=== PATIENT | male | born 1980 | race Caucasian/White ===

== ENCOUNTER 2018-11-07 14:00 | Observation (INO) | payer MEDICAID ==
[~2018-11-07] VITALS: Ht 175.3 cm; Wt 84.5 kg
[2018-11-07 17:20] LABS: BASOPHILS 0.3 % (0-2); EOSINOPHILS 0.7 % (0-7); HEMATOCRIT 41.1 % (42.0-54.0); HEMOGLOBIN 14.2 g/dL (13.5-17.5); LYMPHOCYTES 22.9 % (15-50); MCH 29.8 pg (26.0-34.0); MCHC 34.5 g/dL (31.0-37.0); MCV 86.2 fL (80.0-100.0); MEAN PLATELET VOLUME 10.1 fL (7.4-10.4); MONOCYTES 5.2 % (2-11); NEUTROPHILS 70.9 % (40-80); PLATELET COUNT 206 10x3/uL (130-400); RBC 4.77 10x6/uL (4.20-6.10); WBC 5.8 10x3/uL (4.8-10.8)
[2018-11-07 17:22] LABS: INR 1.09 (0.85-1.17); PROTIME 13.6 SECONDS (11.6-15.0)
--- NOTE | 2018-11-07 17:24 | NUR ---
ANCEF COMLETED AT 1700
[2018-11-07 17:30] LABS: ALBUMIN 4.3 g/dL (3.4-5.0); ALKALINE PHOSPHATASE 66 U/L (46-116); ALT (SGPT) 31 U/L (10-68); BILIRUBIN - TOTAL 0.32 mg/dL (0.2-1.3); CALC OSMOLALITY 286 mosm/kg (275-300); CALCIUM 8.6 mg/dL (8.5-10.1); CARBON DIOXIDE 29.9 mmol/L (21.0-32.0); CHLORIDE - SERUM 105 mmol/L (98-107); CREATININE - SERUM 1.1 mg/dL (0.6-1.3); GLUCOSE 98 mg/dL (74-106); POTASSIUM - SERUM 4.3 mmol/L (3.5-5.1); PROTEIN - SERUM 8.2 g/dL (6.4-8.2); SODIUM 143 mmol/L (136-145); UREA NITROGEN 17 mg/dL (7-18); eGFR NON AFRICAN AMERICAN 80 mL/min (90-120)
[2018-11-07 19:15] LABS: APPEARANCE CLEAR (CLEAR); BILIRUBIN NEGATIVE (NEGATIVE); COLOR YELLOW (YELLOW); GLUCOSE NEGATIVE (NEGATIVE); KETONE NEGATIVE (NEGATIVE); NITRITE NEGATIVE (NEGATIVE); PROTEIN NEGATIVE (NEGATIVE); SPECIFIC GRAVITY 1.015 (1.005-1.020); UROBILINOGEN NORMAL (NORMAL)
[2018-11-08] MEDS ORDERED: NORCO 7.5/325 T1 TA1 PO (02:36)
[2018-11-08] MEDS ORDERED: DURICEF500 MG PO (02:36)
[2018-11-08 03:41] VITALS: BP 136/95; Ht 175.3 cm; Wt 84.5 kg
--- NOTE | 2018-11-08 03:46 | NUR ---
RECEIVED PT FROM RECOVERY @ 0320 BY HOSPITAL STAFF VIA STRETCHER. PT VITAL SIGNS: BP-136/95, PULSE-60, R-18, AND O2 SAT-97%, TEMP-97.4. BED IN THE LOWEST POSITION WITH CALL LIGHT IN REACH. WILL CONTINUE TO MONITOR PT AND FOLLOW PLAN OF CARE.
[2018-11-08 05:20] VITALS: BP 130/80
--- NOTE | 2018-11-08 05:26 | NUR ---
PT D/C TO HOME. PT WAS STABLE. VSS: BP-130/80, TEMP-97.6, SPO2-97% AND R-18.P-68 IV WAS REMOVED FROM LEFT AC AND GAUZE WAS APPLIED TO SITE. PT STATED PAIN LEVEL AT 2 ON A NUMERICAL SCALE. PT WAS TRANSPORTED VIA WHEELCHAIR WITH D/C INSTRUCTIONS.
--- NOTE | 2018-11-08 05:33 | NUR ---
PT ALSO VOIDED 300CC'S OF URINE POST-OP
--- NOTE | 2018-11-08 08:15 | OP ---
PATIENT NAME: BARRETT OMNTILLA MEDICAL RECORD: [id number] :84 LOCATION:D.MS [id number] ADMISSION DATE:11/07/18 SURGEON: KIAH RIVAS DO DATE OF OPERATION: 11/08/2018 PROCEDURE: Right ring finger extensor tendon repair in zone 6. PREOPERATIVE DIAGNOSIS: Right ring finger zone 6 tendon laceration. POSTOPERATIVE DIAGNOSIS: Right ring finger zone 6 tendon laceration. INDICATIONS: Mr. Montilla is a 38-year-old right hand dominant male who was using a facing grinder and the wheel slipped off and caught him on the back of the dorsum of the right hand. It went through the skin and immediately he noticed that his right ring finger dropped and he could not extend it. He came to the ER and x-rays were taken. No fractures or abnormalities were seen on the x-ray, but he could not extend his ring finger. I was called to see him and examined him and apparently he did have an extensor tendon laceration of the ring finger. The other fingers including the small finger and middle finger, index finger and thumb all extended. I informed the patient, he would need this repaired and he had not eaten since breakfast this morning and we try to get it done. He was informed of the risks and benefits including infection, bleeding, damage to nerve and vessels. Aware the postop protocol, remaining in the splint and he was aware of all the risks and benefits and signed consent. SURGEON: Kiah Rivas DO DESCRIPTION OF PROCEDURE: The patient was taken to the operative suite, laid in the supine position, given 2 grams Ancef. The right upper extremity was prepped and draped in sterile fashion. The timeout was performed, everyone was in agreement as to correct side, site and the patient and the right upper extremity was then exsanguinated with an Esmarch. The tourniquet was inflated to 250 mmHg and was up for 21 minutes throughout the procedure. The wound was then irrigated and explored and the distal end of the tendons were found. It was quite broad and then the proximal end of the tendon was found. There was a smaller tendon and a larger tendon. It was 100% lacerated. They were repaired equally with a modified Cordero suture and then a running stitch circumferentially around it with 4-0 Ethibond around the repair site. This was a good repair. The tendon had good excursion and the ring finger did not droop. Following that repair, the wrist was brought in extension and in neutral as well and in flexion of the wrist. There was no drooping of the ring finger. The site was then thoroughly irrigated and closed with 5-0 Monocryl in an inverted interrupted fashion. Steri-Strips were placed on the wound. A 0.5% Marcaine with epinephrine was injected around the site. The tourniquet was let down at 21 minutes and then Adaptic, 4 x 4, Webril was placed on the long, ring, and small finger as well as around the hand, wrist, and a 3 x 12 splint was placed just past the PIP joints of the small, ring and long fingers and then this was overwrapped with an Les wrap with slight wrist extension. The fingers were kept in extension with no flexion at the MCP joints. Once the splint had hardened, the patient was awakened and taken to recovery in stable condition. Blood loss was minimal. Complications none. TRANSINT:[id number] Voice Confirmation ID: [id number] DOCUMENT ID: [id number] OPERATIVE REPORT [id number] BARRETT MONTILLA MICHAEL D, DO at 0815 CC: [id number] DICTATION DATE: 11/08/18 024 YARDAGE CONTROL CLERK: 11/08/18 0715 DIS IN 11/08/18 [facility] [address] [place] [address]
--- NOTE | 2018-11-08 09:33 | MORECARE ---
CASE MANAGEMENT DISCHARGE SUMMARY PATIENT: BARRETT LONG UNIT: [id number] ADM DATE: 11/07/18 AGE: 38 : [birth year] SEX: M ROOM/BED: [id number] AUTHOR: OSCAR MORTENSEN PHYSICIAN: REFERRING PHYSICIAN: KIAH RIVAS DO DATE OF SERVICE: 11/08/18 Discharge Plan Patient Name: BARRETT LONG [facility] [facility] 1980 Planned Disposition: Anticipated Discharge Date: Discharge Date: 11/08/2018 Expected LOS: 0 Initial Reviewer: [email or web address] Initial Review Date: 11/08/2018 Generated: 11/08/18 10:33 am Patient Name: BARRETT LONG Page [id number] at 0933 All edits/amendments must be made on the electronic document DICTATION DATE: 11/08/18932 BRICKMASON CONTRACTOR: HUI 11/08/1833 RPT#: [id number] DC DATE:11/08/18 STATUS: DIS IN [facility] [address] [place] [address] END OF REPORT
== END 2018-11-08 05:38 | disposition home or self-care (01) ==
LOC: D.ER 14:00 → D.EDHOLD 17:05 → OBSVTIME 17:07 → D.MS 11-08 00:47
PROVIDERS: Family Medicine; ADMIT Orthopaedic Surgery
DX: S66.324A Laceration of extensor muscle, fascia and tendon of right ring finger at wrist and hand level, initial encounter (principal); W31.89XA Contact with other specified machinery, initial encounter; I10 Essential (primary) hypertension

== ENCOUNTER 2018-12-23 16:49 | Observation (INO) | payer MEDICAID ==
[~2018-12-23] VITALS: Ht 175.3 cm; Wt 84.1 kg
[~2018-12-23 16:49] MED LIST: DURICEF500 MG PO; NORCO 7.5/325 T1 TA1 PO
[2018-12-23 17:53] VITALS: BP 135/82
--- NOTE | 2018-12-23 17:57 | NUR ---
PATIENT BP WAS 135/[address] ADVISED KESHAWNP RACHAEL THAT PATIENT BP WAS WNL. HELD IV APRESOLINE PER EDP
[2018-12-23 18:01] LABS: BASOPHILS 0.6 % (0-2); EOSINOPHILS 4.8 % (0-7); HEMOGLOBIN 13.8 g/dL (13.5-17.5); IMMATURE GRANULOCYTES 0.3 % (0-5); LYMPHOCYTES 36.1 % (15-50); MCH 30.1 pg (26.0-34.0); MCHC 34.5 g/dL (31.0-37.0); MCV 87.1 fL (80.0-100.0); MEAN PLATELET VOLUME 10.1 fL (7.4-10.4); MONOCYTES 10.3 % (2-11); NEUTROPHILS 47.9 % (40-80); PLATELET COUNT 174 10x3/uL (130-400); RBC 4.59 10x6/uL (4.20-6.10); WBC 3.3 10x3/uL (4.8-10.8)
[2018-12-23 18:23] LABS: ALBUMIN 3.6 g/dL (3.4-5.0); ALKALINE PHOSPHATASE 83 U/L (46-116); ALT (SGPT) 167 U/L (10-68); BILIRUBIN - TOTAL 0.28 mg/dL (0.2-1.3); CALC OSMOLALITY 275 mosm/kg (275-300); CALCIUM 8.3 mg/dL (8.5-10.1); CARBON DIOXIDE 27.8 mmol/L (21.0-32.0); CHLORIDE - SERUM 102 mmol/L (98-107); CREATININE - SERUM 0.8 mg/dL (0.6-1.3); GLUCOSE 109 mg/dL (74-106); POTASSIUM - SERUM 3.8 mmol/L (3.5-5.1); PROTEIN - SERUM 7.2 g/dL (6.4-8.2); SODIUM 138 mmol/L (136-145); UREA NITROGEN 9 mg/dL (7-18); eGFR NON AFRICAN AMERICAN > 90 mL/min (90-120)
[2018-12-23 19:10] VITALS: BP 120/87
--- NOTE | 2018-12-23 19:34 | NUR ---
PRACTIONER IN TO SEE PATIENT AND EXPLAIN TO HIM HE NEEDS TO STAY FOR OBSERVATION. PT VERBALIZES UNDERSTANDING.
--- NOTE | 2018-12-23 20:44 | NUR ---
PT STABLE. AWAITING ROOM ON FLOOR TO BE CLEAN. PT UPDATED ABOUT DELAY AND STATES "IT'S OK- I'M FINE"- NO REQUESTS.
[2018-12-23 23:41] VITALS: BP 132/75; Ht 175.3 cm; Wt 84.1 kg
[2018-12-24] VITALS: BP 124/66
[2018-12-24 04:00] VITALS: BP 115/66
--- NOTE | 2018-12-24 08:03 | NUR ---
PT RESTING IN BED. NO ACUTE DISTRESS NOTED. SCD'S PLACED AT THIS TIME. BRUSING NOTED TO LEFT NECK. SALINE LOC TO LEFT AC INTACT, EASILY FLUSHES WITH BLOOD RETURN. REPORTS PAIN 8/10 AT THIS TIME. PAIN MEDICATION GIVEN PER MD ORDERS. DENIES FURTHER NEEDS AT THIS TIME. CL WITHIN REACH. ENCOURAGED TO CALL WITH NEEDS. CONTINUE POC
[2018-12-24 08:44] VITALS: BP 130/77
[2018-12-24 09:08] LABS: ALBUMIN 3.8 g/dL (3.4-5.0); ALKALINE PHOSPHATASE 63 U/L (46-116); ALT (SGPT) 171 U/L (10-68); BILIRUBIN - TOTAL 0.34 mg/dL (0.2-1.3); CALC OSMOLALITY 279 mosm/kg (275-300); CALCIUM 8.8 mg/dL (8.5-10.1); CARBON DIOXIDE 27.9 mmol/L (21.0-32.0); CHLORIDE - SERUM 103 mmol/L (98-107); CREATININE - SERUM 0.9 mg/dL (0.6-1.3); GLUCOSE 111 mg/dL (74-106); POTASSIUM - SERUM 4.1 mmol/L (3.5-5.1); PROTEIN - SERUM 7.6 g/dL (6.4-8.2); SODIUM 140 mmol/L (136-145); UREA NITROGEN 12 mg/dL (7-18); eGFR NON AFRICAN AMERICAN > 90 mL/min (90-120)
--- NOTE | 2018-12-24 10:50 | NUR ---
UA COLLECTED AND TAKEN TO LAB PER MD ORDERS.
[2018-12-24 11:24] LABS: APPEARANCE CLEAR (CLEAR); BILIRUBIN NEGATIVE (NEGATIVE); COLOR YELLOW (YELLOW); GLUCOSE NEGATIVE (NEGATIVE); KETONE NEGATIVE (NEGATIVE); NITRITE NEGATIVE (NEGATIVE); PROTEIN NEGATIVE (NEGATIVE); SPECIFIC GRAVITY 1.005 (1.005-1.020); UROBILINOGEN NORMAL (NORMAL)
[2018-12-24 11:34] LABS: UDS - AMPHET NEGATIVE QUAL (NEGATIVE); UDS - BARB NEGATIVE QUAL (NEGATIVE); UDS - BENZO POSITIVE QUAL (NEGATIVE); UDS - COCAINE NEGATIVE QUAL (NEGATIVE); UDS - OPIATE POSITIVE QUAL (NEGATIVE); UDS - PCP NEGATIVE QUAL (NEGATIVE); UDS - THC NEGATIVE QUAL (NEGATIVE)
[2018-12-24 13:16] VITALS: BP 122/73
[2018-12-24 17:29] VITALS: BP 139/78
[2018-12-24 20:00] VITALS: BP 157/85
[2018-12-25 04:00] VITALS: BP 125/76
[2018-12-25 05:41] LABS: ALBUMIN 3.7 g/dL (3.4-5.0); ALKALINE PHOSPHATASE 58 U/L (46-116); ALT (SGPT) 136 U/L (10-68); BILIRUBIN - TOTAL 0.58 mg/dL (0.2-1.3); CALC OSMOLALITY 282 mosm/kg (275-300); CALCIUM 8.7 mg/dL (8.5-10.1); CARBON DIOXIDE 25.9 mmol/L (21.0-32.0); CHLORIDE - SERUM 103 mmol/L (98-107); CREATININE - SERUM 0.8 mg/dL (0.6-1.3); GLUCOSE 97 mg/dL (74-106); POTASSIUM - SERUM 3.5 mmol/L (3.5-5.1); PROTEIN - SERUM 7.6 g/dL (6.4-8.2); SODIUM 142 mmol/L (136-145); UREA NITROGEN 13 mg/dL (7-18); eGFR NON AFRICAN AMERICAN > 90 mL/min (90-120)
[2018-12-25 07:49] LABS: BASOPHILS 0.5 % (0-2); EOSINOPHILS 2.3 % (0-7); HEMATOCRIT 41.9 % (42.0-54.0); HEMOGLOBIN 14.2 g/dL (13.5-17.5); IMMATURE GRANULOCYTES 0.3 % (0-5); LYMPHOCYTES 28.9 % (15-50); MCH 29.7 pg (26.0-34.0); MCHC 33.9 g/dL (31.0-37.0); MCV 87.7 fL (80.0-100.0); MEAN PLATELET VOLUME 10.7 fL (7.4-10.4); MONOCYTES 8.1 % (2-11); NEUTROPHILS 59.9 % (40-80); PLATELET COUNT 198 10x3/uL (130-400); RBC 4.78 10x6/uL (4.20-6.10); RDW 13.4 % (11.5-14.5)
[2018-12-25 07:50] LABS: WBC 6.5 10x3/uL (4.8-10.8)
[2018-12-25 09:23] VITALS: BP 114/71
[2018-12-25 10:22] LABS: HEPATITIS C ANTIBODY 0.1 S/CO RAT (0.0-0.9)
[2018-12-25 14:21] VITALS: BP 131/83
[2018-12-26] MEDS ORDERED: HYDROCODON-ACE1 EAC2 PO (07:50)
== END 2018-12-25 18:51 | disposition home or self-care (01) ==
LOC: D.ER 16:49 → D.MS 19:37 → D.EDHOLD 19:37 → OBSVTIME 19:37 → D.MS 19:59
PROVIDERS: Family Medicine; ADMIT Internal Medicine Nephrology
DX: J81.1 Chronic pulmonary edema (principal); R74.8 Abnormal levels of other serum enzymes; V59.3XXA Occupant (driver) (passenger) of pick-up truck or van injured in unspecified nontraffic accident, initial encounter; I10 Essential (primary) hypertension

== ENCOUNTER 2018-12-26 06:35 | Emergency (ER) | payer MEDICAID ==
[~2018-12-26] VITALS: Ht 175.3 cm; Wt 84.1 kg
[2018-12-26 06:42] VITALS: Ht 175.3 cm; Wt 84.1 kg
[2018-12-26] MEDS ORDERED: HYDROCODON-ACE1 EAC2 PO (07:50)
[2018-12-26 08:36] VITALS: BP 132/76
== END 2018-12-26 08:37 | disposition home or self-care (01) ==
LOC: D.ER 06:35
DX: M79.18 Myalgia, other site (principal); V49.9XXA Car occupant (driver) (passenger) injured in unspecified traffic accident, initial encounter; Y93.89 Activity, other specified; Y92.410 Unspecified street and highway as the place of occurrence of the external cause

== ENCOUNTER 2019-07-02 22:14 | Emergency (ER) | payer MEDICAID ==
[2018-12-26 06:42] VITALS: BMI 27.3
[~2019-07-02 22:14] MED LIST changes: +HYDROCODON-ACE1 EAC2 PO
== END 2019-07-02 23:07 | disposition left against medical advice (07) ==
LOC: D.ER 22:14
DX: M54.9 Dorsalgia, unspecified (principal)

== ENCOUNTER 2019-08-24 07:17 | Emergency (ER) | payer MEDICAID ==
[~2019-08-24] VITALS: Ht 175.3 cm; Wt 90.9 kg
[2019-08-24 07:21] VITALS: Ht 175.3 cm; Wt 90.9 kg
[2019-08-24] MEDS ORDERED: DICLOFENAC SODI50 MG PO (07:23)
[2019-08-24 07:34] VITALS: BP 128/72
== END 2019-08-24 07:34 | disposition home or self-care (01) ==
LOC: D.ER 07:17
DX: T18.4XXA Foreign body in colon, initial encounter (principal); X58.XXXA Exposure to other specified factors, initial encounter

== ENCOUNTER 2019-11-07 01:08 | Emergency (ER) | payer MEDICAID ==
[~2019-11-07] VITALS: Ht 175.3 cm; Wt 90.9 kg
[~2019-11-07 01:08] MED LIST changes: +DICLOFENAC SODI50 MG PO
[2019-11-07 01:12] VITALS: Ht 175.3 cm; Wt 90.9 kg
[2019-11-07 02:10] LABS: BASOPHILS 0.3 % (0-2); HEMATOCRIT 41.5 % (42.0-54.0); HEMOGLOBIN 14.7 g/dL (13.5-17.5); LYMPHOCYTES 34.5 % (15-50); MCH 30.4 pg (26.0-34.0); MCHC 35.4 g/dL (31.0-37.0); MCV 85.7 fL (80.0-100.0); MEAN PLATELET VOLUME 9.8 fL (7.4-10.4); NEUTROPHILS 57.2 % (40-80); PLATELET COUNT 235 10x3/uL (130-400); RBC 4.84 10x6/uL (4.20-6.10); RDW 12.4 % (11.5-14.5); WBC 7.1 10x3/uL (4.8-10.8)
[2019-11-07 02:15] LABS: CALC OSMOLALITY 289 mosm/kg (275-300); CALCIUM 8.8 mg/dL (8.5-10.1); CARBON DIOXIDE 27.5 mmol/L (21.0-32.0); CHLORIDE - SERUM 107 mmol/L (98-107); CREATININE - SERUM 1.1 mg/dL (0.6-1.3); GLUCOSE 98 mg/dL (74-106); POTASSIUM - SERUM 4.1 mmol/L (3.5-5.1); SODIUM 145 mmol/L (136-145); UREA NITROGEN 15 mg/dL (7-18); eGFR NON AFRICAN AMERICAN 80 mL/min (90-120)
[2019-11-07 02:16] LABS: APTT 29.9 SECONDS (22.8-39.4); INR 1.09 (0.85-1.17)
[2019-11-07 02:50] LABS: ALBUMIN 4.4 g/dL (3.4-5.0); ALKALINE PHOSPHATASE 59 U/L (46-116); ALT (SGPT) 40 U/L (10-68); BILIRUBIN - TOTAL 0.34 mg/dL (0.2-1.3); CKMB 0.8 U/L (0.0-3.6); CREATINE KINASE 93 UL (21-232); MAGNESIUM - SERUM 2.2 mg/dL (1.8-2.4); PROTEIN - SERUM 7.7 g/dL (6.4-8.2); TROPONIN-I < 0.017 ng/mL (0.000-0.060)
[2019-11-07] MEDS ORDERED: METOPROLOL TART50 MG PO (02:58)
[2019-11-07 03:10] VITALS: BP 157/98
== END 2019-11-07 03:10 | disposition home or self-care (01) ==
LOC: D.ER 01:08
PROVIDERS: Emergency Medicine
DX: I10 Essential (primary) hypertension (principal); R06.02 Shortness of breath